=== PATIENT | male | born 1975 | race Two or more races ===

== ENCOUNTER 2020-07-23 15:40 | Outpatient (CLI) | payer OTHER | END 2020-07-23 15:41 | disposition home or self-care (01) | LOC: PPH VACUNA 15:40 | DX: Z23 Encounter for immunization (principal) ==

== ENCOUNTER 2020-08-13 10:22 | Outpatient (CLI) | payer OTHER | END 2020-08-13 10:23 | disposition home or self-care (01) | LOC: PPH VACUNA 10:22 | DX: Z23 Encounter for immunization (principal) ==